=== PATIENT | male | born 1995 | race Caucasian/White ===

== ENCOUNTER 2022-01-19 09:29 | Emergency (ER) | payer OTHER ==
[~2022-01-19] VITALS: Ht 193 cm; Wt 97.8 kg
[2022-01-19 10:33] VITALS: BP 144/89
[2022-01-19] MEDS ORDERED: IBUP800T27 PO (10:46)
== END 2022-01-19 10:55 | disposition home or self-care (01) ==
LOC: ER 09:29
DX: S83.92XA Sprain of unspecified site of left knee, initial encounter (principal); Z79.1 Long term (current) use of non-steroidal anti-inflammatories (NSAID); X58.XXXA Exposure to other specified factors, initial encounter; Y93.89 Activity, other specified; Y92.89 Other specified places as the place of occurrence of the external cause; Y99.8 Other external cause status
CPT/HCPCS: 73562

== ENCOUNTER 2023-10-12 09:36 | Emergency (ER) | payer OTHER ==
[~2023-10-12] VITALS: Ht 193 cm; Wt 100.5 kg
[~2023-10-12 09:36] MED LIST: IBUP-1456 PO
[2023-10-12 10:27] VITALS: BP 147/104; PULSE 79; RESP 16; TEMP 99; O2SAT 96
== END 2023-10-12 11:11 | disposition home or self-care (01) ==
LOC: ER 09:36
DX: S42.401A Unspecified fracture of lower end of right humerus, initial encounter for closed fracture (principal); W18.09XA Striking against other object with subsequent fall, initial encounter; Y93.89 Activity, other specified; Y92.89 Other specified places as the place of occurrence of the external cause; Y99.8 Other external cause status
CPT/HCPCS: 29105; 73080